=== PATIENT | male | born 1960 | race Two or more races ===

== ENCOUNTER 2016-08-02 18:13 | Emergency (ER) | payer SELFPAY ==
[2016-08-02 18:22] VITALS: RESP 16; TEMP 98.2; O2SAT 97
--- NOTE | 2016-08-02 18:29 | EDPHY ---
H & P Time Seen by Provider: 08/02/16 18:22 HPI/ROS: CHIEF COMPLAINT: Left foot pain and redness HISTORY OF PRESENT ILLNESS: 36 hours of pain without known trauma. No fever and no calf pain. No chest pain or shortness of breath. Pain is located mostly over the dorsum of the foot in the instep area and extends up to the ankle but not proximally. REVIEW OF SYSTEMS: No fever or chills. PAST MEDICAL HISTORY: Negative for gout, or diabetes. Hypertension and cardiac stenting in 2011. Social history: No drug abuse. History obtained with milker machine physically present in the room. General Appearance: Alert and conversant, cooperative. Dorsum of the left foot is red and mildly warm to the touch. Little bit tender to palpation. No fluctuance or eschar. No blisters. Ankle joint is stable. No lymphangitis and no calf tenderness. No bony deformity. No open wounds. Normal dorsalis pedis pulse. Emergency Department course/MDM: 1845: Normal left foot and ankle x-ray personally interpreted. Afebrile, normal CBC and sedimentation rate. Considered DVT or arterial occlusion I think both unlikely. Plan to treat with crutches, foot brace, oral antibiotics for possible foot cellulitis with redness and warmth and mild tenderness. Constitutional: Initial Vital Signs Temperature (C) 36.8 C 08/02/16 18:19 Heart Rate 74 08/02/16 18:19 Respiratory Rate 16 08/02/16 18:19 Blood Pressure 204/120 H 08/02/16 18:19 O2 Sat (%) 97 08/02/16 18:19 O2 Delivery Mode Room Air Allergies/Adverse Reactions: No Known Allergies Allergy (Unverified 02/13/12 10:13) Home Medications: Medication Instructions Recorded Simvastatin [Zocor 10 mg] 40 mg PO DAILY18 #30 tab 02/15/12 Cephalexin [Keflex] 500 mg PO QID #28 cap 08/02/16 Sulfamethox/Tmp 800/160 mg 1 tab PO BID@1000,2200 #14 tab 08/02/16 [Bactrim Ds] MDM/Departure - [facility] Imaging Results: Imaging Impressions Ankle X-Ray 08/02/16 18:28 Impression: 1. No fracture. 2. Diffuse soft tissue swelling. 3. Plantar and dorsal calcaneal spurs. Foot X-Ray 08/02/16 18:28 Impression: Soft tissue swelling with some degenerative features, but no acute osseous abnormality. Medications Given: Discontinued Medications Cephalexin HCl (Keflex) 500 mg PO EDNOW ONE PRN Reason: Protocol Stop: 08/02/16 19:29 Last Admin: 08/02/16 19:32 Dose: 500 mg Trimethoprim/Sulfamethoxazole (Bactrim Ds) 1 ea PO EDNOW ONE PRN Reason: Protocol Stop: 08/02/16 19:29 Last Admin: 08/02/16 19:33 Dose: 1 ea - Depart Disposition: Home, Routine, Self-Care Clinical Impression: Cellulitis of left foot Condition: Good Instructions: Cellulitis (ED) Prescriptions: Cephalexin [Keflex] 500 mg PO QID #28 cap Sulfamethox/Tmp 800/160 mg [Bactrim Ds] 1 tab PO BID@1000,2200 #14 tab Referrals: NONE *PRIMARY CARE P,. [Unknown] - As per Instructions [facility],. [Clinic] - As per Instructions
[2016-08-02 18:57] LABS: % IMMATURE GRANULYOCYTES 0.3 % (0.0-1.1); ABSOLUTE IMMATURE GRANULOCYTES 0.03 10^3/uL (0.00-0.10); ADD DIFF? NO; ADD MORPH? NO; ADD SCAN? NO; ATYPICAL LYMPHOCYTE FLAG 0 (0-99); FRAGMENT RBC FLAG 0 (0-99); HEMATOCRIT 40.6 % (40.0-51.0); HEMOGLOBIN 14.1 g/dL (13.7-17.5); LEFT SHIFT FLG 0 (0-99); LIPEMIA HEMOLYSIS FLAG 90 (0-99); MEAN CELL HEMOGLOBIN 31.1 pg (27.9-34.1); MEAN CELL HEMOGLOBIN CONCENTR. 34.7 g/dL (32.4-36.7); MEAN CELL VOLUME 89.6 fL (81.5-99.8); MEAN PLATELET VOLUME 10.4 fL (8.7-11.7); PLATELET CLUMPS FLAG 0 (0-99); PLATELET COUNT 209 10^3/uL (150-400); RED BLOOD CELL COUNT 4.53 10^6/uL (4.40-6.38); RED CELL DISTRIBUTION WIDTH 13.4 % (11.5-15.2)
[2016-08-02 19:18] LABS: SEDIMENTATION RATE 19 MM/HR (0-20)
[2016-08-02] MEDS ORDERED: SULFAMETHOX/TMP 800/160 MG 1 TAB PO ONE (19:28)
[2016-08-02] MEDS ORDERED: CEPHALEXIN 500 MG CAP PO ONE (19:28)
[2016-08-02 20:29] VITALS: BP 190/98; PULSE 65
== END 2016-08-02 20:29 | disposition home or self-care (01) ==
DX: L03.116 Cellulitis of left lower limb (principal); I10 Essential (primary) hypertension; Z95.5 Presence of coronary angioplasty implant and graft
CPT/HCPCS: L3260